=== PATIENT | male | born 1945 | race Caucasian/White ===

== ENCOUNTER 2018-06-23 06:00 | Inpatient (IN) | payer OTHER, SELFPAY ==
[2018-06-02 10:53] VITALS: BMI 34.7
[2018-06-23] VITALS (13 sets, daily range): BP systolic 116–155; BP diastolic 71–98; PULSE 66–108; RESP 14–22; TEMP 36.2–37.2; O2SAT 88–99; BMI 34.7
--- NOTE | 2018-06-23 06:30 | DI.RAD.S_ITS ---
PROCEDURE: XR SHOULDER LT 1V INDICATIONS: prosthesis placement TECHNIQUE: 1 views of the shoulder were acquired. COMPARISON: [facility], CR, XR SHOULDER 2+ VIEWS LEFT, 06/28/2017, 10:48. FINDINGS: Bones: At the postoperative changes have occurred in the interim related to a total left shoulder arthroplasty. The prosthetic components appear to be appropriately seated. No displaced fractures are appreciated. Soft tissues: Expected postoperative changes within the soft tissues overlying the left shoulder are present. A surgical drainage catheter is evident. No unexpected radiopaque foreign bodies are identified. IMPRESSION: Expected post surgical changes related to a left shoulder arthroplasty. Dictated by: Jose G Nuñez M.D. on 06/23/2018 at 10:31 Approved by: Jose G Nuñez M.D. on 06/23/2018 at 10:31
[2018-06-23] MEDS: LACTATED RINGERS 1,000 ML 42 ML IV ×2 (07:00→10:14)
[2018-06-23] MEDS: VANCOMYCIN 1,000 MG/200 ML FROZ.PIGGY 200 MG IV ×2 (07:05→19:27)
[2018-06-23] MEDS: MIDAZOLAM 2 MG/2 ML VIAL 1 MG IV (07:43)
[2018-06-23] MEDS: fentaNYL 100 MCG/2 ML INJ 50 MCG IV (07:43)
--- NOTE | 2018-06-23 07:50 | PM.AN.REGBLK ---
Regional Block Pre-procedure Medications: Current Medications Generic Name Dose Route Start Last Admin Trade Name Freq PRN Reason Stop Dose Admin Fentanyl 50 mcg 06/23/18 06:30 06/23/18 07:43 Sublimaze IV 50 mcg Q5MIN PRN Administration Pain, Severe (7-10) Lactated Ringer's 1,000 mls @ 42 mls/hr 06/23/18 06:30 06/23/18 07:00 Lactated Ringers IV 42 mls/hr CONT ANITA Administration Midazolam HCl 1 mg 06/23/18 06:30 06/23/18 07:43 Versed IV 1 mg Q2MIN PRN Administration Anxiety Tranexamic Acid 1,000 mg 06/23/18 06:30 Cyklokapron INJ 06/24/18 06:31 INTRA-OP ANITA Allergies: Allergies Allergy/AdvReac Type Severity Reaction Status Date / Time Penicillins Allergy Mild RASH AND Verified 05/10/18 09:00 SWELLING OF EXTREMITIES strawberry AdvReac Mild THROAT Verified 05/10/18 09:00 SCRATCHY watermelon AdvReac Mild BREATHING Verified 05/10/18 09:00 GETS WHEEZY
--- NOTE | 2018-06-23 07:55 | PM.PREOP ---
Pre-operative Note Interval Note Pre-op Check: Yes History & Physical Reviewed by Physician Changes: No
[2018-06-23] MEDS: GENTAMICIN 200 MG in SODIUM CHLORIDE 0.9% 100 ML 105 ML IV (08:00)
--- NOTE | 2018-06-23 08:04 | SUR.PREOP ---
Block start time [0750] . Monitoring initiated and maintained throughout procedure. Oxygen and medications given per anesthesiologist instructions. Patient remained stable throughout procedure, no adverse reactions noted. Block end time []0755 .
--- NOTE | 2018-06-23 08:43 | SUR.OPER ---
Beach chair with Lizeth/Michell shoulder positioner. Lower body on padded OR bed. Head in foam padded head cradle, secured with straps. Non-operative arm secured <90 degrees abduction. Pillow under knees. Safety belt at thigh. Cloth tape over blanket over lower legs.
[2018-06-23] MEDS: LIDOCAINE 1% W/EPI INJ 20 ML INJ (08:53)
--- NOTE | 2018-06-23 09:26 | PM.PROC.1 ---
Procedures Date/Time Date of procedure: 06/23/18 Time of procedure: 07:50 Nerve Block Local anesthetic used: other Location of anesthetic used: Block: 15ml ropivacaine 0.5% + 5ml Lido 2% w/ epi; Local 0.5ml Lido 1% Amount of anesthesia used (mL): 20 Nerve blocks: brachial plexus (Left interscalene/brachial plexus block) Procedure successful: Yes Patient tolerated procedure: well Complications: none Additional comments: Sterile technique with routine monitors and O2 per NC. Ultrasound visualization and Nerve Stimulator technique utilized. 50 mm 22g sheathed needle for block.
--- NOTE | 2018-06-23 10:42 | P.OP_ITS ---
Operative Date/Time/Diagnoses Date of procedure: 06/23/18 Time of procedure: 08:00 Pre-op diagnosis: LEFT SHOULDER END-STAGE ARTHRITIS Post-op diagnosis: same Procedure & Clinicians Procedure: LEFT TOTAL SHOULDER ARTHROPLASTY Same procedure as scheduled: Yes Indications: END-STAGE ARTHRITIS TO THE LEFT GLENOHUMERAL JOINT Surgeon: Ck Pedroza Humanities Instructor: Elena Hunt Anesthesia Type: General and Peripheral nerve block Operative Notes Findings: END-STAGE ARTHRITIC CHANGES TO THE GLENOHUMERAL JOINT. SIGNIFICANT OSTEOPHYTE FORMATION AROUND THE HUMERAL HEAD WELL FREE-FLOATING OSTEOPHYTES INVADED INTO THE SUBSCAPULARIS. ALSO FREE-FLOATING OSTEOPHYTE INFERIOR TO THE HUMERAL HEAD. NO SIGN OF ANY SIGNIFICANT ROTATOR CUFF TEARS. NO SIGN OF ANY HIGH RIDING HUMERAL HEAD. Specimen(s): none sent Implants & Drains: TORNIER XL50 GLENOID TORNIER 8B STEM 52X19 HIGH OFFSET Applied: drain(s) Estimated Blood Loss (mL): 100 Blood products transfused: none Procedure in detail: ON DATE OF SERVICE, PATIENT WAS MET IN THE HOLDING AREA. THE OPERATIVE SITE WAS SIGNED AND WITNESSED BY THE OR STAFF. THE SURGERIES ONCE AGAIN DISCUSSED WITH THE PATIENT AND ANY REMAINING QUESTIONS THEY HAD WERE ANSWERED FULLY. PATIENT WAS TAKEN BACK TO THE OPERATING THEATER AND PLACED ON THE OPERATING TABLE IN A SUPINE POSITION. GREAT CARE WAS TAKEN TO ENSURE THAT ALL BONY PROMINENCES WERE PROPERLY PADDED. PATIENT WAS THEN PLACED INTO THE BEACH CHAIR POSITION. THE HEAD AND NECK WERE PROPERLY POSITIONED AND SECURED. A TIMEOUT WAS PERFORMED VERIFYING PATIENT'S NAME, PROCEDURE, AND THE OPERATIVE SITE. THE UPPER EXTREMITY WAS THEN PREPPED AND DRAPED IN THE NORMAL STERILE FASHION. PREVIOUSLY, THE BONY ANATOMY AND INCISION WERE MARKED OUT WELL INJECTED WITH MARCAINE WITH EPINEPHRINE. A DELTOPECTORAL APPROACH WAS PERFORMED. 10 BLADE WAS USED TO INCISE THE SKIN AND FASCIAL TISSUE. A DEEP KNIFE WAS USED TO CONTINUE SHARP DISSECTION UNTIL THE CEPHALIC VEIN WAS VISUALIZED. THE CEPHALIC VEIN WAS DISSECTED FREE ALLOWING US TO EXPOSE THE DELTOPECTORAL INTERVAL. THIS INTERVAL WAS THEN DEVELOPED. A SHORT ELEVATOR WAS USED TO FREE UP THE DELTOID OF ANY SCARRING BOTH SUPERFICIALLY WELL DEEPLY. THE VEIN AND THE DELTOID WERE TAKEN LATERALLY WHILE THE PECTORALIS WAS TAKEN MEDIALLY. THIS GAVE US GOOD VISUALIZATION OF THE STRAP MUSCLES. THE CLAVIPECTORAL FASCIA WAS REMOVED AND THE STRAP MUSCLES WERE THEN RETRACTED MEDIALLY WITH THE PECTORALIS. THIS GAVE US STABILIZATION OF THE SUBSCAPULARIS. THE CIRCUMFLEX VESSELS WERE LIGATED AND THE SUBSCAPULARIS WAS SHARPLY EXCISED OFF THE LESSER TUBEROSITY AND THEN TAGGED. ONCE THE SUBSCAPULARIS WAS RELEASED WE'RE ABLE TO DISLOCATE THE SHOULDER. PATIENT HAD END-STAGE ARTHRITIC CHANGES TO THE HUMERAL HEAD WELL THE GLENOID WITH LARGE OSTEOPHYTES ANTERIOR INFERIORLY WELL POSTERIORLY. A RONGER WAS THEN USED TO REMOVE THE OSTEOPHYTES. NEXT, CUTTING GUIDE WAS PLACED AND A SAW WAS USED TO REMOVE THE HUMERAL HEAD. ONCE THE HEAD WAS REMOVED IT WAS TEMPLATED. A STARTING AWL WAS THEN USED TO FIND THE CANAL AND THEN THE HUMERUS WAS REAMED AND BROACHED. TRIAL STEM WAS PLACED AND A VARIETY OF HEADS WERE TRIALED. A PROTECTOR PLACED FOR THE OSTEOTOMY WAS THEN PLACED AND AND WE TURNED OUR ATTENTION BACK TO THE SUBSCAPULARIS WELL THE GLENOID. THE SUBSCAPULARIS WAS FREED UP AND A 360? FASHION. THE DEGENERATIVE ANTERIOR AND INFERIOR CAPSULAR TISSUE WAS REMOVED. THIS WAS FOLLOWED BY REMOVING THE DEGENERATIVE LABRAL TISSUE FROM AROUND THE GLENOID WELL THE BICEPS INSERTION. THIS GAVE US GOOD VISUALIZATION OF THE GLENOID. GLENOID TRIALS WERE USED UNTIL WE FOUND THE APPROPRIATE FIT AND CURVATURE. NEXT THE CENTER HOLE WAS DRILLED FOLLOWED BY REAMING OF THE GLENOID. THE WOUND WAS COPIOUSLY IRRIGATED AFTER REAMING. NEXT THE PEGS WERE DRILLED AND A TRIAL GLENOID WAS IMPACTED INTO PLACE. ONCE WE WERE SATISFIED WITH THE PREPARATION OF THE GLENOID , THE FINAL COMPONENT WAS CEMENTED INTO PLACE. THIS WAS FOLLOWED BY IMPACTION. WE RETURN TO OUR ATTENTION BACK TO THE HUMERUS. THE PROTECTOR PLATE WAS REMOVED AND HEADS WERE TRIALED ONCE AGAIN AND SO WE FOUND THE APPROPRIATE FIT. THE TRIALS WERE REMOVED AND BONE TUNNELS WERE MADE INTO THE HUMERAL NECK. #2 FIBERWIRE WERE PASSED THROUGH THE BONE TUNNELS FOR EVENTUAL SUBSCAPULARIS REPAIR. THE FINAL STEM AND HEAD WERE IMPACTED INTO PLACE AND THE SHOULDER WAS REDUCED. IT WAS TAKEN THROUGH RANGE OF MOTION AND WAS FELT TO BE STABLE IN BOTH POSTERIOR TRANSLATION WELL EXTERNAL AND INTERNAL ROTATION WITH ABDUCTION. THE SUBSCAPULARIS WAS REPAIRED BACK TO THE LESSER TUBEROSITY THROUGH THE BONE TUNNELS. THIS WAS THEN REINFORCED WITH SOFT TISSUE REPAIR. PART OF THE ROTATOR INTERVAL WAS THEN CLOSED. A DRAIN WAS PLACED AND THE REST OF THE WOUND WAS CLOSED IN A LAYERED FASHION. THE SHOULDER WAS THEN CLEANED DRIED AND DRESSED AND THE PATIENT WAS TAKEN TO THE PACU IN STABLE CONDITION. PATIENT WILL FOLLOW OUR POSTOPERATIVE PROTOCOL FOR TOTAL SHOULDER ARTHROPLASTY. Complications: none Condition: stable Disposition: PACU Plan for aftercare: PATIENT WILL FOLLOW OUR POSTOPERATIVE PROTOCOL FOR TOTAL SHOULDER ARTHROPLASTY.
[2018-06-23] MEDS: LACTATED RINGERS 1,000 ML 125 ML IV ×2 (12:21→19:26)
[2018-06-23] MEDS: HYDROCODONE/ACET 5/325 TABLET 2 TAB PO ×2 (15:01→20:35)
--- NOTE | 2018-06-23 15:24 | PT.IIE ---
Current Diagnoses Primary osteoarthritis, left shoulder (06/23/18) Surgery Performed Operation Date: 06/23/18 07:45 Actual Procedures p Total Shoulder Arthroplasty(Left) - Ck Pedroza MD Surgical History (Last Updated 06/02/18 @ 11:25 by Maddie Lei RN) H/O vasectomy (Acute) History of left-sided carotid endarterectomy (Acute) Hx of arthroscopy of left knee (Acute) Hx of tonsillectomy (Acute) Status post cataract extraction of both eyes with insertion of intraocular lens (Acute ~07/2015) Anesthesia (Resolved) Biceps tendon tear (Resolved ~2004) History of arthroplasty (Resolved ~07/07/13) History of prostate surgery (Resolved ~04/2000) Status post knee surgery Medical History (Last Updated 06/02/18 @ 11:31 by Maddie Lei RN) Snoring (Chronic) AAA (abdominal aortic aneurysm) without rupture (Acute ~12/2015) Afib (Acute) Anxiety (Acute) CAD (coronary artery disease) (Acute) CVA (cerebral vascular accident) (Acute ~09/2017) Hiatal hernia (Acute) Hyperlipidemia (Acute) Moderate mitral regurgitation (Acute) LALIT treated with BiPAP (Acute) PAD (peripheral artery disease) (Acute) Depression (Chronic) Elevated PSA (Chronic ~1999) Glaucoma (Chronic ~2004) Headache (Chronic) Hypertension (Chronic ~1989) Myocardial infarction (Chronic ~1983) Prostate cancer (Chronic ~1999) Shoulder pain (Chronic) Substance abuse (Chronic) TIA (transient ischemic attack) (Chronic ~2005) Tinnitus (Chronic) Vertigo (Chronic ~2004) Chicken pox (Resolved) Measles (Resolved) Physical Therapy Inpatient Evaluation/Re-Eval M1 PT/OT-IP Prior Functional Status Start: 06/23/18 16:55 Freq: NEEDED Status: Active Protocol: Document 06/23/18 15:24 AB (Rec: 06/23/18 17:10 AB [id number]) Medical Review Prior Functional Status Medical History Reviewed Yes Communication able to make needs known Mobility and Gait pt stated that he is indpenendent with all mobilities and ambulation without AD; able to walk ~ 1 mile daily Social History Household Members spouse Living Arrangements Mobile home Number of Floors (Floors) One Floor Number of Stairs To Enter/Railing? 4 stairs with bilateral rails Home Environment Standard Height Toilet Walk in Shower Employment Status Retired Additional Social History Comment spouse works but is off Fri, Sat Sun and can assist pt; pt has a hiking pole at home M2 PT-IP Current Condition Start: 06/23/18 16:55 Freq: NEEDED Status: Active Protocol: Document 06/23/18 15:24 AB (Rec: 06/23/18 17:10 AB [email or web address]) Physical Therapy Current Condition Current Condition Evaluation Date 06/23/18 Treatment Diagnosis s/p L TSA; difficulty in walking Onset Date 06/23/18 Precautions Shoulder Precautions Sling PROM Internal Rotation to Body No External Rotation No Abduction Forward Flexion to 90 degrees Pendulums Brace pt has L sling on M3 PT-IP Subjective Start: 06/23/18 16:55 Freq: NEEDED Status: Active Protocol: Document 06/23/18 15:24 AB (Rec: 06/23/18 17:10 AB [email or web address]) Subjective Physical Therapy Visit Type Type Initial Evaluation Visit Start Time 15:24 Visit Stop Time 16:00 Total Visit Minutes 36 Number of RESIDENTIAL PROGRAM DIRECTOR Visits 0 Physical Therapy Visit Comments Patient Comments pt agreeable to do PT Therapy Pain Assessment Pain When Pain Assessed At Rest Pain Present Pain Present Pain Reported Location Left Shoulder Intensity 5 Scale Used Numeric (1 - 10) Pain Management Techniques Apply Cold Timing of Activity with Medications M4 PT-IP Mobility and Gait Start: 06/23/18 16:55 Freq: NEEDED Status: Active Protocol: Document 06/23/18 15:24 AB (Rec: 06/23/18 17:10 AB [email or web address]) PT-Bed Mobility Assessment Supine to Sit Supine to Sit Standby Assistance Scooting Scooting to Edge of Bed Standby Assistance PT-Transfer Assessment Sit to and From Stand Sit to and from Stand Contact Guard Assistance Minimal Assistance Equipment Transfer Assistive Device None Gait Belt Orthotic/Prosthetic Devices or Brace: Yes Transfer Ability Level of Assist Contact Guard Assistance Comments Mobility Comments pt has L sling on pt required 2 attempts with sit to stand requiring min A and cues with initial LOB backwards requiring min A for controlled descent. pt ambulated in room without AD and sat on EOB to rest. agreed to get up and sit on chair and pt was able to complete sit to stand with only CGA. positioned pt on chair. call light and table placed within reach. Gait Assessment Gait Gait Assistance Required: Contact Guard Assist Minimum Assistance Distance (Feet) 40 Able to Maintain Weight Bearing Status Yes During Gait Assistive Devices Assistive Device None Gait Belt Orthotic/Prosthetic Devices or Brace: No Gait Deviations General Gait Pattern Antalgic Decreased Stride Length Wide Based Gait Factors Limiting Gait Function Factors Limiting Gait Function Decreased Activity Tolerance Decreased Strength Limited Range of Motion Pain Poor Balance Comments Gait Comments pt completed ambulation in room requiring min A with first walk ~ 20 ft and only required CGA with 2nd walk and completed 40 ft with cues. pt ambulated without AD and presents with unsteady gain with wide CECELIA. pt stated that his balance gets better the longer he stands and walkd. educated pt on possibly using a SPC and will be assessed tomorrow if appropriate and pt agreed. pt stated that he has a hiking pole at home he can use. PT-Balance Assessment Sitting Balance and Reactions Static Sitting Balance Ability Good Dynamic Sitting Balance Ability Good Standing Balance and Reactions Static Standing Balance Ability Fair Dynamic Standing Balance Ability Fair Device Used without AD M5 PT-IP Objective Assessments Start: 06/23/18 16:55 Freq: NEEDED Status: Active Protocol: Document 06/23/18 15:24 AB (Rec: 06/23/18 17:10 AB [id number]) Orientation Orientation/Cognition Level of Alertness Alert Orientation Name Place Situation Gross Range of Motion Upper Extremity ROM Assessment Left Impaired Impairments L on sling Lower Extremity ROM Assessment Within Functional Limits Strength Lower Extremity Strength Assessment Within Functional Limits Sensation Assessment Sensation Gross Sensation Left UE Impaired Comments Sensation Comments stated that L shoulder/traps still feels a little numb M6 PT-IP Treatment Start: 06/23/18 16:55 Freq: NEEDED Status: Active Protocol: Document 06/23/18 15:24 AB (Rec: 06/23/18 17:10 AB [email or web address]) Physical Therapy Treatment Exercises Exercises Elbow Flexion/Extension Education Education Provided Precautions Weight Bearing Status Post-Op Packet Safety Other Treatments Other Treatment Performed pt educated on sling management, shoulder precautions and pendulum activity. pt was able to dangle LUE but unable to do pendulum. pt completed elbow flexion/extension M7 PT-IP Assessment and Plan Start: 06/23/18 16:55 Freq: NEEDED Status: Active Protocol: Document 06/23/18 15:24 AB (Rec: 06/23/18 17:10 AB [email or web address]) PT Summary Assessment and Plan Potential Rehabilitation Potential Fair Status of Condition at Evaluation Evolving Summary Impairments Pain ROM Strength Balance Coordination Sensation Tone Cognition Bed Mobility Transfers Gait Activity Tolerance Assessment Summary pt requiring CGA with mobility and will likely progress during hospital stay. caregiver training will be conducted when appropriate as well as stair climbing training prior to d/c. pt has spouse to assist him at home. pt stated that he has outpt PT set up already. Goals Bed Mobility Goal Standby Assistance Transfer Goal Standby Assistance Gait Goal Standby Assistance Gait Distance 200 Other Goals up/down 4 steps with 1 rail Days to Meet Goals 3 Frequency of Treatment Frequency Of Treatment Twice a Day Treatment Plan Physical Therapy Treatment Plan Bed Mobility Training Transfer Training Gait Training Therapeutic Exercise Balance Retraining Post Op Education Discharge Planning Hot or Cold Pack Neuromuscular Re-ed Coordination Retraining Manual Therapy Other Recommendations and Next Treatment caregiver training (sling Focus management); pendulum exercises if appropriate; ambulation using SPC/without AD depending on pt's stability , stair climbing Recommendations To Nursing Amount of Assist Needed 1 Person Assist Discharge Recommendations PT Discharge Recommendations Home with Assistance Outpatient PT
--- NOTE | 2018-06-23 18:23 | PC.NURSE ---
Pt awake and alert up in recliner in room. Denies pain stating excellent results from vicodin administered on dayshi. Hemovac to left shoulder surgical site is compressed and intact. Strong radial pulse to left wrist with strong correctional corporal to left fingers. Warm extremities. Pt denies nausea, denies difficulty with urination. Has urinal @ chairside. General diet without nausea.
[2018-06-23] MEDS: DOCUSATE 100 MG CAPSULE PO (20:35)
[2018-06-24] MEDS: HYDROCODONE/ACET 5/325 TABLET 2 TAB PO ×3 (00:45→11:21)
[2018-06-24 04:23] VITALS: BP 156/94; PULSE 66; RESP 20; TEMP 36.8; O2SAT 94
[2018-06-24 04:51] VITALS: O2SAT 94
[2018-06-24 06:08] LABS: Hematocrit 38.3 % (41-53); Hemoglobin 13.2 g/dL (13.5-17.5); Mean Corpuscular HGB Conc 34.5 % (30-36); Mean Corpuscular Hemoglobin 32.5 PG (26-34); Mean Corpuscular Volume 94.2 fL (80-100); Platelet Count 130 X10^3/uL (150-400); Red Blood Cell Count 4.07 X10^6/uL (4.5-5.9); Red Cell Distribution Width 13.7 % (11.6-14.8); White Blood Cell Count 11.8 X10^3/uL (4.5-11.0)
--- NOTE | 2018-06-24 07:30 | PM.DS.1 ---
History of Present Illness Date Patient Seen: 06/24/18 Time Patient Seen: 07:19 Chief complaint: [id number] LEFT RECONSTRUC SHOULDER JOINT Narrative: Patient seen bedside s/p Julia CHIRINOS with Dr. Pedroza POD #1. Patient is doing well, his pain has been under a 5 all night. Hydrocodone/APAP brings pain down to nothing. He denies CP, SOB, or numbness/tingling. He is ready to go home. Discharge Providers Date of admission: 06/23/18 06:00 Primary care physician: Terence Landers MD Consults: 06/02/18 12:50 Consult to Anesthesiology Routine Comment: Consulting Provider: Anesthesiologist Reason for consultation: Surgeon requested re: Cardiac 06/23/18 10:32 Consult to Discharge Planning Routine Comment: Consult to Physical Therapy Evaluate & Treat Comment: Physician Instructions: Evaluate and Treat Consult to Respiratory Therapy Evaluate & Treat Comment: Physician Instructions: Evaluate and treat 06/23/18 12:21 Consult to Respiratory Therapy Evaluate & Treat Comment: Physician Instructions: Evaluate and treat Discharge provider: Jennyfer Clayton PA-C Discharge Date: 06/24/18 Summary Discharge Diagnosis: L. shoulder osteoarthritis Hospital Course: Patient was admitted s/p Julia CHIRINOS on 06/24/[address] Pedroza. Patient tolerated the procedure well with no major complications. Patient was transferred to the acute care floor where he worked with PT. He was stable and ready for discharge home on 06/24/18. Status at Discharge Cognitive/behavioral status at discharge: Alert & oriented x3 Functional status at discharge: independent ambulation Overall status at discharge: patient is progressing back to baseline Time Spent with Patient Less than 30 minutes Exam Vital Signs (past 8 hours): - 06/24/18 04:23 06/24/18 04:51 Temperature 98.2 F Pulse Rate 66 Respiratory Rate 20 Blood Pressure 156/94 H Pulse Oximetry 94 94 Oxygen Delivery Method BiPAP Oxygen Flow Rate 0 Narrative Exam Narrative: WDWN NAD A&Ox3. Aquacel dressing on left shoulder CDI. Sensation intact in LUE. ROM of wrist and elbow intact. NVI in this extremity. Objective Labs Result Diagrams: 06/24/18 05:49 Labs: Laboratory Results - last 24 hr 06/24/18 05:49 WBC 11.8 H RBC 4.07 L Hgb 13.2 L Hct 38.3 L MCV 94.2 MCH 32.5 MCHC 34.5 RDW 13.7 Plt Count 130 L Discharge Plan Discharge Plan Patient Disposition: Home Discharge Med Rec/Prescriptions Prescriptions: New hydrocodone-acetaminophen 5-325 mg Tablet 1 tab PO Q4HR PRN (Reason: Pain, Moderate (4-6)) Qty: 40 RF: 0 docusate sodium 100 mg Capsule 100 mg PO BID Qty: 0 RF: 0 Continue multivitamin Capsule 1 cap PO DAILY Qty: 0 RF: 0 apixaban [Eliquis] 5 MG tablet 5 mg BID Qty: 0 RF: 0 timolol maleate 0.5 % drops 1 drp EYE-BOTH QAM Qty: 0 RF: 0 latanoprost [Xalatan] 0.005 % Drops 1 drp EYE-BOTH BEDTIME RF: 0 rosuvastatin 40 mg Tablet 40 mg PO QAM RF: 0 prazosin 1 MG capsule 1 tab PO BID RF: 0 diltiazem HCl 180 mg capsule,extended release 24hr 180 mg PO DAILY RF: 0 Follow up/Referrals: Terence Landers MD [Primary Care Provider] - (follow up with your primary care provider) Provider Discharge Instructions Diet: Diet as Tolerated Activity: Keep sling on unless moving elbow/wrist, doing pendulum exercises. Do not move shoulder Cold/Heat Therapy: Apply ice 20 minutes at a time to affected area at least hourly while awake Skin/Wound/Dressing Care Report to your healthcare provider any signs of infection, such as:: chills, fever, night sweats, increased pain and unusual drainage Dressing: Keep Aquacel dressing clean, dry, and intact. May shower with it in place. No baths or soaking. Visit Report/Discharge Packet Instructions: DI for Shoulder Replacement Visit Report Forms: Stroke Signs & Symptoms Discharge Data Primary Care Provider: Terence Landers Attending Provider: Ck Pedroza Admit Date/Time: 06/23/18 06:00 Discharges patient from system. Discharge Date/Time: 06/24/18 11:30 Quality VTE Deep Vein Thrombosis/Pulmonary Embolism Present on Admission: No
[2018-06-24 08:07] VITALS: BP 132/82; PULSE 92; RESP 18; TEMP 36.6; O2SAT 95
--- NOTE | 2018-06-24 09:00 | PT.IPTN ---
Current Diagnoses Primary osteoarthritis, left shoulder (06/23/18) Surgery Performed Operation Date: 06/23/18 07:45 Actual Procedures p Total Shoulder Arthroplasty(Left) - Ck Pedroza MD Physical Therapy Treatment Note M2 PT-IP Current Condition Start: 06/23/18 16:55 Freq: NEEDED Status: Discharge Protocol: Document 06/23/18 15:24 AB (Rec: 06/23/18 17:10 AB [email or web address]) Physical Therapy Current Condition Current Condition Evaluation Date 06/23/18 Treatment Diagnosis s/p L TSA; difficulty in walking Onset Date 06/23/18 Precautions Shoulder Precautions Sling PROM Internal Rotation to Body No External Rotation No Abduction Forward Flexion to 90 degrees Pendulums Brace pt has L sling on M3 PT-IP Subjective Start: 06/23/18 16:55 Freq: NEEDED Status: Discharge Protocol: Document 06/24/18 09:00 GGD (Rec: 06/24/18 12:59 GGD [id number]) Subjective Physical Therapy Visit Type Type Treatment Note Visit Start Time 08:35 Visit Stop Time 09:00 Total Visit Minutes 25 Number of EXTRUSION BENDER Visits 1 Physical Therapy Visit Comments Patient Comments Pt states he wants to go home. Therapy Pain Assessment Pain When Pain Assessed At Rest Pain Present Pain Present Pain Reported Location Left Shoulder Intensity 4 Scale Used Numeric (1 - 10) M4 PT-IP Mobility and Gait Start: 06/23/18 16:55 Freq: NEEDED Status: Discharge Protocol: Document 06/24/18 09:00 GGD (Rec: 06/24/18 12:59 GGD [id number]) PT-Transfer Assessment Sit to and From Stand Sit to and from Stand Standby Assistance Equipment Transfer Assistive Device None Gait Belt Orthotic/Prosthetic Devices or Brace: Yes Transfers Transfer Destination Chair Transfer Ability Level of Assist Contact Guard Assistance Gait Assessment Gait Gait Assistance Required: Contact Guard Assist Distance (Feet) 220 Able to Maintain Weight Bearing Status Yes During Gait Assistive Devices Assistive Device None Gait Belt Orthotic/Prosthetic Devices or Brace: Yes Gait Deviations General Gait Pattern Antalgic Decreased Stride Length Wide Based Gait Factors Limiting Gait Function Factors Limiting Gait Function Decreased Activity Tolerance Decreased Strength Limited Range of Motion Pain Poor Balance Stair Climbing Assessment Evaluation Level of Assist On Stairs Standby Assistance Devices Stair Climbing Assistive Devices Left Railing Right Railing Technique/Endurance Stair Climbing Direction Ascend and Descend Stair Climbing Technique Step Over Step Number of Steps Climbed 3 Query Text: Stair Climbing Set # Repetitions (reps) 1 Comments Stair Climbing Comments right rail M5 PT-IP Objective Assessments Start: 06/23/18 16:55 Freq: NEEDED Status: Discharge Protocol: Document 06/23/18 15:24 AB (Rec: 06/23/18 17:10 AB [email or web address]) Orientation Orientation/Cognition Level of Alertness Alert Orientation Name Place Situation Gross Range of Motion Upper Extremity ROM Assessment Left Impaired Impairments L on sling Lower Extremity ROM Assessment Within Functional Limits Strength Lower Extremity Strength Assessment Within Functional Limits Sensation Assessment Sensation Gross Sensation Left UE Impaired Comments Sensation Comments stated that L shoulder/traps still feels a little numb M6 PT-IP Treatment Start: 06/23/18 16:55 Freq: NEEDED Status: Discharge Protocol: Document 06/24/18 09:00 GGD (Rec: 06/24/18 12:59 GGD [id number]) Physical Therapy Treatment Exercises Exercises Shoulder Pendulums Elbow Flexion/Extension Wrist ROM Hand ROM Education Education Provided Precautions Weight Bearing Status Post-Op Packet Safety M7 PT-IP Assessment and Plan Start: 06/23/18 16:55 Freq: NEEDED Status: Discharge Protocol: Document 06/24/18 09:00 GGD (Rec: 06/24/18 12:59 GGD [id number]) PT Summary Assessment and Plan Summary Assessment Summary Pt improving with mobility. He had improved steadiness with gait. He was safe and stable with gait and stair mobility with no LOB. Safe for D/C home when medically stable. Frequency of Treatment Frequency Of Treatment Twice a Day Recommendations To Nursing Amount of Assist Needed 1 Person Assist Discharge Recommendations PT Discharge Recommendations Home with Assistance Outpatient PT
[2018-06-24] MEDS: dilTIAZem CD 180 MG CAP PO (09:15)
[2018-06-24] MEDS: MULTIVITAMIN 1 TABLET 1 TAB PO (09:16)
[2018-06-24] MEDS: ROSUVASTATIN 10 MG TABLET 40 MG PO (09:16)
[2018-06-24] MEDS: DOCUSATE 100 MG CAPSULE PO (09:16)
--- NOTE | 2018-06-24 09:25 | PT.IPTN ---
Current Diagnoses Primary osteoarthritis, left shoulder (06/23/18) Surgery Performed Operation Date: 06/23/18 07:45 Actual Procedures p Total Shoulder Arthroplasty(Left) - Ck Pedroza MD Physical Therapy Treatment Note M2 PT-IP Current Condition Start: 06/23/18 16:55 Freq: NEEDED Status: Discharge Protocol: Document 06/23/18 15:24 AB (Rec: 06/23/18 17:10 AB [email or web address]) Physical Therapy Current Condition Current Condition Evaluation Date 06/23/18 Treatment Diagnosis s/p L TSA; difficulty in walking Onset Date 06/23/18 Precautions Shoulder Precautions Sling PROM Internal Rotation to Body No External Rotation No Abduction Forward Flexion to 90 degrees Pendulums Brace pt has L sling on M3 PT-IP Subjective Start: 06/23/18 16:55 Freq: NEEDED Status: Discharge Protocol: Document 06/23/18 15:24 AB (Rec: 06/23/18 17:10 AB [email or web address]) Subjective Physical Therapy Visit Type Type Initial Evaluation Visit Start Time 15:24 Visit Stop Time 16:00 Total Visit Minutes 36 Number of POWERSAW SUPERVISOR Visits 0 Physical Therapy Visit Comments Patient Comments pt agreeable to do PT Therapy Pain Assessment Pain When Pain Assessed At Rest Pain Present Pain Present Pain Reported Location Left Shoulder Intensity 5 Scale Used Numeric (1 - 10) Pain Management Techniques Apply Cold Timing of Activity with Medications M4 PT-IP Mobility and Gait Start: 06/23/18 16:55 Freq: NEEDED Status: Discharge Protocol: Document 06/23/18 15:24 AB (Rec: 06/23/18 17:10 AB [email or web address]) PT-Bed Mobility Assessment Supine to Sit Supine to Sit Standby Assistance Scooting Scooting to Edge of Bed Standby Assistance PT-Transfer Assessment Sit to and From Stand Sit to and from Stand Contact Guard Assistance Minimal Assistance Equipment Transfer Assistive Device None Gait Belt Orthotic/Prosthetic Devices or Brace: Yes Transfer Ability Level of Assist Contact Guard Assistance Comments Mobility Comments pt has L sling on pt required 2 attempts with sit to stand requiring min A and cues with initial LOB backwards requiring min A for controlled descent. pt ambulated in room without AD and sat on EOB to rest. agreed to get up and sit on chair and pt was able to complete sit to stand with only CGA. positioned pt on chair. call light and table placed within reach. Gait Assessment Gait Gait Assistance Required: Contact Guard Assist Minimum Assistance Distance (Feet) 40 Able to Maintain Weight Bearing Status Yes During Gait Assistive Devices Assistive Device None Gait Belt Orthotic/Prosthetic Devices or Brace: No Gait Deviations General Gait Pattern Antalgic Decreased Stride Length Wide Based Gait Factors Limiting Gait Function Factors Limiting Gait Function Decreased Activity Tolerance Decreased Strength Limited Range of Motion Pain Poor Balance Comments Gait Comments pt completed ambulation in room requiring min A with first walk ~ 20 ft and only required CGA with 2nd walk and completed 40 ft with cues. pt ambulated without AD and presents with unsteady gain with wide CEECLIA. pt stated that his balance gets better the longer he stands and walkd. educated pt on possibly using a SPC and will be assessed tomorrow if appropriate and pt agreed. pt stated that he has a hiking pole at home he can use. PT-Balance Assessment Sitting Balance and Reactions Static Sitting Balance Ability Good Dynamic Sitting Balance Ability Good Standing Balance and Reactions Static Standing Balance Ability Fair Dynamic Standing Balance Ability Fair Device Used without AD M5 PT-IP Objective Assessments Start: 06/23/18 16:55 Freq: NEEDED Status: Discharge Protocol: Document 06/23/18 15:24 AB (Rec: 06/23/18 17:10 AB [email or web address]) Orientation Orientation/Cognition Level of Alertness Alert Orientation Name Place Situation Gross Range of Motion Upper Extremity ROM Assessment Left Impaired Impairments L on sling Lower Extremity ROM Assessment Within Functional Limits Strength Lower Extremity Strength Assessment Within Functional Limits Sensation Assessment Sensation Gross Sensation Left UE Impaired Comments Sensation Comments stated that L shoulder/traps still feels a little numb M6 PT-IP Treatment Start: 06/23/18 16:55 Freq: NEEDED Status: Discharge Protocol: Document 06/23/18 15:24 AB (Rec: 06/23/18 17:10 AB [email or web address]) Physical Therapy Treatment Exercises Exercises Elbow Flexion/Extension Education Education Provided Precautions Weight Bearing Status Post-Op Packet Safety Other Treatments Other Treatment Performed pt educated on sling management, shoulder precautions and pendulum activity. pt was able to dangle LUE but unable to do pendulum. pt completed elbow flexion/extension M7 PT-IP Assessment and Plan Start: 06/23/18 16:55 Freq: NEEDED Status: Discharge Protocol: Document 06/23/18 15:24 AB (Rec: 06/23/18 17:10 AB [email or web address]) PT Summary Assessment and Plan Potential Rehabilitation Potential Fair Status of Condition at Evaluation Evolving Summary Impairments Pain ROM Strength Balance Coordination Sensation Tone Cognition Bed Mobility Transfers Gait Activity Tolerance Assessment Summary pt requiring CGA with mobility and will likely progress during hospital stay. caregiver training will be conducted when appropriate as well as stair climbing training prior to d/c. pt has spouse to assist him at home. pt stated that he has outpt PT set up already. Goals Bed Mobility Goal Standby Assistance Transfer Goal Standby Assistance Gait Goal Standby Assistance Gait Distance 200 Other Goals up/down 4 steps with 1 rail Days to Meet Goals 3 Frequency of Treatment Frequency Of Treatment Twice a Day Treatment Plan Physical Therapy Treatment Plan Bed Mobility Training Transfer Training Gait Training Therapeutic Exercise Balance Retraining Post Op Education Discharge Planning Hot or Cold Pack Neuromuscular Re-ed Coordination Retraining Manual Therapy Other Recommendations and Next Treatment caregiver training (sling Focus management); pendulum exercises if appropriate; ambulation using SPC/without AD depending on pt's stability , stair climbing Recommendations To Nursing Amount of Assist Needed 1 Person Assist Discharge Recommendations PT Discharge Recommendations Home with Assistance Outpatient PT
[2018-06-24 11:33] VITALS: BP 163/85; PULSE 79; RESP 18; TEMP 36.3; O2SAT 95
--- NOTE | 2018-06-24 12:23 | PC.NURSE ---
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 Given norco 5/325mg x1 tab prior to discharge, script provided.
--- NOTE | 2018-06-24 15:53 | CM.DANOTE ---
Discharge Planning/Care Management CM Discharge Assessment Start: 06/24/18 15:53 Freq: Status: Discharge Protocol: Document 06/24/18 10:32 (Rec: 06/24/18 15:53 [id number]) Discharge Planning Assessment Assigned Rn Outpatient Surgery CHANTELLE Be Advance Directives? No History Provided By Patient Family Member Medical Record Prior Living Arrangements Mobile home Household Members spouse Type of transporation used prior to Drives own vehicle admit Independent with ADL's Yes Is patient alert and oriented? Yes Patient/Family Preference OP PT Therapy Barriers to Discharge No Discharge Plan Home Community Services Physical Therapy Referrals Initiated None needed Whiteboard Updated in Patient Room with Yes name and ext. # of Rn Outpatient Surgery Please Provide Date Initial DC 06/24/18 Assessment Was Performed Pre-Anesthesia Assessment Start: 06/02/18 10:53 Freq: Status: Complete Protocol: Document 06/02/18 10:53 CAB (Rec: 06/02/18 11:46 CAB [id number]) Pre-Anesthesia Assessment Patient Also Known As ([email or web address]) Jaciel Patient Information Reviewed Via Phone Assessment Assessment Completed With Patient Lab Results EKG Primary Care Provider Terence Landers Seen Specialist in Last 12 Months Yes Specialist Seen Guest Service Team Leader Orthopedist Sleep specialist Primary Language Kosovan Rare/Endangered Species Specialist Required No Height 180.34 cm Weight 112.945 kg Body Mass Index (BMI) 34.7 Hearing Ability Normal Visual Assist Glasses Dentition Type Teeth, Natural Present Barriers to Learning Memory Comment Short term memory issues Hx Anesthesia Reactions No Hx Family Anesthesia Reaction No Hx Malignant Hyperthermia No Hx Blood Transfusions Yes: Autologous transfusion 2000 s/p prostatectomy Hx Blood Transfusion Reaction No Anesthesia Review Requested Yes: Surgeon requested re: Cardiac 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 No Does patient have WEI/SOB No Hx Sleep Apnea Yes CPAP/BIPAP use prescribed and used routinely Will Bring CPAP/BIPAP DOS Yes Currently Taking a Beta Kelvin No Can You Climb a Flight of Stairs Without Yes: c/o daytime fatigue PCP SOB , molder vacuum aware Hx Chest Pain No Hx SOB No Hx Syncope or Dizziness No Anti-Coagulant Therapy Yes: Eliquis - will hold 48hrs prior per Guest Service Team Leader Has a Guest Service Team Leader Yes Cardiac Testing Yes: Last ECHO, Carotid US 10/10 Hx Pacemaker/ICD No Pacemaker Rep Required? No Comment Cardiology note, ECHO to med recs. Carotid US done at Diet Type At Home Regular dysphagia No Genitourinary Symptoms Dribbling Bladder Pattern Nocturia Urinary Catheter Present No Hx Urinary Self Catheterization No Diabetes No Hx Drug Resistant Organism No Presence of External or Internal Medical No Devices Comment Aortic stent Have you traveled outside the [facility] [place] in the last 30 days? Marital Status Lives With spouse Prior Living Arrangements Mobile home Number of Floors (Floors) One Floor Number of Stairs To Enter/Railing? 4 stairs, railing present Support System Child/Children Spouse Does the Patient Have Assistance After Yes Surgery Patient Discharge Plan Description Return Home Comment Pt feels overnight length of stay Feels Safe in Current Environment Yes Been Physically Hurt or Threatened By a No Person in Current Environment Do you have thoughts of harming yourself None or others? Are you currently considering suicide? No Do you have a plan to hurt yourself or No Plan others? Do You Have Any Spiritual Beliefs That No May Affect Your HC Choices? Do You Have Any Cultural Practices That No May Affect Your HC Choices? Spiritual Referral None Who Can We Speak to About Patient's Care Family, friends Identifying Code for Release of Patient Declines to issue Information Health Care Proxy/Next of Kin Mariza () Health Care Proxy Emergency Contact Name Mariza () Emergency Contact Advance Directives? No: Declines further information Power of Park Interpretive Ranger No PAC Instructions Bring CPAP/BIPAP Do not shave/clip surgical site Durable medical equipment Medications to take/avoid Nasal antibiotic No ETOH/petroleum product on skin DOS NPO Post-op transportation Pre-surgical wash Sturdy shoes/comfortable clothes Do not bring valuables and remove jewelry
== END 2018-06-24 11:30 | disposition home or self-care (01) | DRG 483 ==
PROVIDERS: Admitting Provider Orthopaedic Surgery; Family Provider Family Medicine; PCP Family Medicine; Visit Provider Orthopaedic Surgery
PROC: (CPT 23472; principal; 2018-06-23 07:45)
DX: M19.012 Primary osteoarthritis, left shoulder (principal); I10 Essential (primary) hypertension; F32.9 Major depressive disorder, single episode, unspecified; Z96.611 Presence of right artificial shoulder joint; M24.012 Loose body in left shoulder
CPT/HCPCS: 36415; 64450; 73020; 85027; 97110; 97116; 97162; 97530; C1776; J0330; J1100; J2250; J2405; J2704; J2795; J3010; J3370

== ENCOUNTER → 2019-02-20 11:58 | Outpatient (CLI) | payer OTHER, SELFPAY ==
[2018-06-23 06:35] VITALS: BMI 34.7
[2019-02-20 12:44] LABS: Add Manual Diff / Slide Review NO; Basophils Absolute Auto 0 /uL (0-100); Basophils Percent Auto 0.3 % (0-2); Eosinophils Absolute Auto 100 /uL (0-450); Eosinophils Percent Auto 1.3 % (2-4); Hematocrit 45.1 % (41-53); Hemoglobin 14.7 g/dL (13.5-17.5); Lymphocytes Absolute Auto 1200 /uL (1100-4500); Lymphocytes Percent Auto 18.2 % (25-40); Mean Corpuscular HGB Conc 32.7 % (30-36); Mean Corpuscular Hemoglobin 31.2 PG (26-34); Mean Corpuscular Volume 95.5 fL (80-100); Monocytes Absolute Auto 500 /uL (0-900); Monocytes Percent Auto 8.6 % (3-14); Neutrophils Absolute Auto 4600 /uL (1500-7000); Neutrophils Percent Auto 71.6 % (50-75); Platelet Count 137 X10^3/uL (150-400); Red Blood Cell Count 4.72 X10^6/uL (4.5-5.9); Red Cell Distribution Width 16.2 % (11.6-14.8); White Blood Cell Count 6.4 X10^3/uL (4.5-11.0)
[2019-02-20 13:48] LABS: Alanine Aminotransferase 17 IU/L (21-72); Albumin Globulin Ratio 1.2 (1.0-2.8); Alkaline Phosphatase 115 U/L (38-126); Aspartate Aminotransferase 23 IU/L (17-59); BUN Creatinine Ratio 10.9 (6-22); Bilirubin Total 0.8 mg/dL (0.2-1.3); Blood Urea Nitrogen 12 mg/dL (9-20); Calcium 9.2 mg/dL (8.4-10.2); Carbon Dioxide 28 mmol/L (22-32); Chloride 102 mmol/L (98-107); Cholesterol 142 mg/dL (140-199); Estimated Glomerular Filt Rate > 60.0 mL/min (>60); Globulin 3.3 g/dL (1.7-4.1); Glucose 100 mg/dL (80-110); HDL Cholesterol 56 mg/dL (40-60); HEMOLYSIS < 15 (0-50); LDL Cholesterol Calculated 62 mg/dL (<100); Potassium 4.5 mmol/L (3.4-5.1); Sodium 140 mmol/L (137-145); Total Protein 7.3 g/dL (6.3-8.2); Triglycerides 121 mg/dL (35-150)
[2019-02-20 14:15] LABS: Thyroid Stimulating Hormone 5.39 uIU/mL (0.47-4.68)
[2019-02-20 14:19] LABS: Prostate Specific Antigen Scrn < 0.064 ng/mL (0.1-4.0)
== END ==
PROVIDERS: PCP Family Medicine; Visit Provider Family Medicine
DX: R42 Dizziness and giddiness (principal); Z12.5 Encounter for screening for malignant neoplasm of prostate
CPT/HCPCS: 36415; 80053; 80061; 83735; 84443; 85025; G0103

== ENCOUNTER → 2020-07-01 14:14 | Outpatient (CLI) | payer OTHER, SELFPAY ==
[2018-06-23 06:35] VITALS: BMI 34.7
[2020-07-01 15:22] LABS: Add Manual Diff / Slide Review NO; Basophils Absolute Auto 0 /uL (0-100); Basophils Percent Auto 0.5 % (0-2); Eosinophils Absolute Auto 200 /uL (0-450); Eosinophils Percent Auto 2.1 % (2-4); Hematocrit 43.8 % (41-53); Hemoglobin 14.7 g/dL (13.5-17.5); Lymphocytes Absolute Auto 1600 /uL (1100-4500); Lymphocytes Percent Auto 21.7 % (25-40); Mean Corpuscular HGB Conc 33.5 % (30-36); Mean Corpuscular Hemoglobin 31.7 PG (26-34); Mean Corpuscular Volume 94.6 fL (80-100); Monocytes Absolute Auto 700 /uL (0-900); Monocytes Percent Auto 9.3 % (3-14); Neutrophils Absolute Auto 5000 /uL (1500-7000); Neutrophils Percent Auto 66.4 % (50-75); Platelet Count 122 X10^3/uL (150-400); Red Blood Cell Count 4.63 X10^6/uL (4.5-5.9); Red Cell Distribution Width 14.1 % (11.6-14.8); White Blood Cell Count 7.6 X10^3/uL (4.5-11.0)
[2020-07-01 15:31] LABS: Hemoglobin A1C% w Est Avg Glu 6.1 % (4.0-6.0)
[2020-07-01 15:54] LABS: Alanine Aminotransferase 21 IU/L (<50); Albumin Globulin Ratio 1.1 (1.0-2.8); Alkaline Phosphatase 86 U/L (38-126); Aspartate Aminotransferase 29 IU/L (17-59); BUN Creatinine Ratio 15.2 (6-22); Bilirubin Total 0.6 mg/dL (0.2-1.3); Blood Urea Nitrogen 16 mg/dL (9-20); Calcium 9.5 mg/dL (8.4-10.2); Carbon Dioxide 33 mmol/L (22-32); Chloride 102 mmol/L (98-107); Estimated Glomerular Filt Rate > 60.0 mL/min (>60); Globulin 3.6 g/dL (1.7-4.1); Glucose 99 mg/dL (80-110); HEMOLYSIS < 15 (0-50); Potassium 3.8 mmol/L (3.4-5.1); Sodium 138 mmol/L (137-145); Total Protein 7.6 g/dL (6.3-8.2)
[2020-07-01 16:09] LABS: Free T4, Direct Thyroxine 1.15 ng/dL (0.78-2.19)
[2020-07-01 16:22] LABS: Thyroid Stimulating Hormone 1.38 uIU/mL (0.47-4.68)
== END ==
PROVIDERS: PCP Family Medicine; Referring Provider Family Medicine; Visit Provider Family Medicine
DX: E03.9 Hypothyroidism, unspecified (principal); I10 Essential (primary) hypertension; R41.3 Other amnesia
CPT/HCPCS: 36415; 80053; 83036; 84439; 84443; 85025

== ENCOUNTER → 2020-09-27 11:00 | Outpatient (CLI) | payer OTHER, SELFPAY ==
[2018-06-23 06:35] VITALS: BMI 34.7
[2020-09-27 12:17] LABS: Hematocrit 44.2 % (41-53); Hemoglobin 14.8 g/dL (13.5-17.5); Mean Corpuscular HGB Conc 33.6 % (30-36); Mean Corpuscular Hemoglobin 31.6 PG (26-34); Mean Corpuscular Volume 94.2 fL (80-100); Platelet Count 136 X10^3/uL (150-400); Red Blood Cell Count 4.69 X10^6/uL (4.5-5.9); Red Cell Distribution Width 14.2 % (11.6-14.8); White Blood Cell Count 6.4 X10^3/uL (4.5-11.0)
[2020-09-27 12:26] LABS: Hemoglobin A1C% w Est Avg Glu 6.1 % (4.0-6.0)
[2020-09-27 12:44] LABS: Alanine Aminotransferase 15 IU/L (<50); Albumin 4.1 g/dL (3.5-5.0); Albumin Globulin Ratio 1.3 (1.0-2.8); Alkaline Phosphatase 89 U/L (38-126); Aspartate Aminotransferase 28 IU/L (17-59); BUN Creatinine Ratio 14.7 (6-22); Bilirubin Total 0.6 mg/dL (0.2-1.3); Blood Urea Nitrogen 15 mg/dL (9-20); Calcium 9.4 mg/dL (8.4-10.2); Carbon Dioxide 31 mmol/L (22-32); Chloride 101 mmol/L (98-107); Cholesterol 149 mg/dL (140-199); Estimated Glomerular Filt Rate > 60.0 mL/min (>60); Globulin 3.2 g/dL (1.7-4.1); Glucose 104 mg/dL (80-110); HDL Cholesterol 44 mg/dL (40-60); HEMOLYSIS < 15 (0-50); LDL Cholesterol Calculated 84 mg/dL (<100); Potassium 4.8 mmol/L (3.4-5.1); Sodium 137 mmol/L (137-145); Total Protein 7.3 g/dL (6.3-8.2); Triglycerides 106 mg/dL (35-150)
[2020-09-27 13:08] LABS: Thyroid Stimulating Hormone 0.581 uIU/mL (0.47-4.68)
[2020-09-27 13:13] LABS: Prostate Specific Antigen Scrn < 0.064 ng/mL (0.1-4.0)
== END ==
PROVIDERS: PCP Family Medicine; Referring Provider Family Medicine; Visit Provider Family Medicine
DX: E78.2 Mixed hyperlipidemia (principal); I10 Essential (primary) hypertension; Z12.5 Encounter for screening for malignant neoplasm of prostate; Z85.46 Personal history of malignant neoplasm of prostate
CPT/HCPCS: 36415; 80053; 80061; 83036; 84443; 85027; G0103

== ENCOUNTER → 2021-03-20 10:54 | Outpatient (CLI) | payer OTHER, SELFPAY ==
[2018-06-23 06:35] VITALS: BMI 34.7
--- NOTE | 2021-03-20 10:59 | DI.CT.S_ITS ---
PROCEDURE: CT ABDOMEN PELVIS W CON INDICATIONS: abdominal pain LLQ TECHNIQUE: After the administration of oral and IV contrast, axial sections were acquired from the lung bases to the pubic symphysis. Coronal and sagittal reformats were performed. For radiation dose reduction, the following was used: automated exposure control, adjustment of mA and/or kV according to patient size. COMPARISON: Outside Film, CT, CT ANGIO ABDOMEN PELVIS, 01/02/2016, 13:39. [facility] Ultrasound, US, US [facility], 10/26/2016, 10:00. FINDINGS: Lower thorax: Lung bases are clear. Small hiatal hernia noted. Heart size within normal limits. Pacer wires present. Chronic interstitial changes noted. Liver: Simple hepatic cysts are again noted smaller compared to the prior exam. Largest is in the right hepatic lobe measuring 3.5 x 4.7 cm, previously 5.5 x 6 cm. Biliary system: No calcified cholelithiasis or pericholecystic inflammation. No intra or extrahepatic bile duct dilatation. Pancreas: Unremarkable without mass or inflammation evident. Spleen: Normal in size and density. Adrenals: Normal morphology and density. Reproductive system: Prostatectomy. Associated surgical clips noted. Urinary system: Normal renal size and attenuation. No renal calculi, hydronephrosis, or solid mass present. Urinary bladder unremarkable. Gastrointestinal system: The bowel appears unremarkable with no evidence of bowel obstruction or inflammation. The stomach appears unremarkable. Multiple diverticula arise from the sigmoid colon without convincing evidence of diverticulitis. Appendix: Normal appendix identified. No evidence of appendicitis. Peritoneal spaces: No mesenteric or retroperitoneal adenopathy. No free air. No free fluid. Vasculature: Infrarenal abdominal aortic aneurysm noted. There is patent aorto bi-iliac endograft present, however, the pokagon thrombosed aortic aneurysm has increased in size compared to the prior exam, now measuring 5.5 x 6.5 cm in diameter by 8.8 cm in length, previously 4.4 x 4.3 cm diameter by 6.5 cm in length. There is a halo slightly increased density is noted surrounding the endo graft, as well as multifocal contrast blush adjacent to the graft measuring less than 3 mm on image 2/47. Musculoskeletal: Normal bone mineralization. No acute fractures. Left inguinal hernia contains fat without bowel involvement. IMPRESSION: 1. 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 Aorto bi-iliac endograft with enlarging surrounding pokagon abdominal aortic aneurysm consistent with [id number] but contained endoleak. 2. Sigmoid diverticulosis without convincing evidence of acute diverticulitis 3. Prostatectomy Approved by: Eddy Dover M.D. on 03/20/2021 at 12:22
[2021-03-20 11:32] LABS: BUN Creatinine Ratio 10.7 (6-22); Blood Urea Nitrogen 13 mg/dL (9-20); Estimated Glomerular Filt Rate 58.5 mL/min (>60)
== END ==
PROVIDERS: PCP Family Medicine; Referring Provider Surgery; Visit Provider Surgery
DX: R10.32 Left lower quadrant pain; K57.30 Diverticulosis of large intestine without perforation or abscess without bleeding
CPT/HCPCS: 36415; 74177; 82565; 84520

== ENCOUNTER → 2021-04-21 09:35 | Outpatient (CLI) | payer OTHER, SELFPAY ==
[2021-04-21 09:18] VITALS: BMI 34.7
[2021-04-21 11:28] LABS: COVID19 -Nasal RAPID Negative (Negative)
== END ==
PROVIDERS: PCP Family Medicine; Visit Provider Surgery
DX: Z20.822 Contact with and (suspected) exposure to COVID-19 (principal); Z01.812 Encounter for preprocedural laboratory examination
CPT/HCPCS: 87635; C9803

== ENCOUNTER → 2021-04-22 10:36 | Day surgery (SDC) | payer OTHER, SELFPAY ==
[2018-06-23 06:35] VITALS: BMI 34.7
[2021-04-21 09:18] VITALS: BMI 34.7
[2021-04-22] VITALS (7 sets, daily range): BP systolic 84–156; BP diastolic 38–83; PULSE 67–83; RESP 12–18; TEMP 36.6–36.7; O2SAT 95–98; BMI 33.5
[2021-04-22] MEDS: LACTATED RINGERS 1,000 ML 200 ML IV (11:13)
--- NOTE | 2021-04-22 12:33 | PM.HP.1 ---
History of Present Illness History of Present Illness Date Patient Seen: 04/22/21 Time Patient Seen: 12:34 Chief complaint: DX COLONOSCOPY Narrative: 75M here for elective colonoscopy for change of bowel habit and abdominal pain. Please see H&P from January 2021 for further detail. No interval changes in health. Patient History Medical History AAA (abdominal aortic aneurysm) without rupture (~12/2015) Afib Anxiety Body mass index (BMI) of 35.0 to 35.9 in adult (11/19/16) CAD (coronary artery disease) Chicken pox CVA (cerebral vascular accident) (~09/2017) Depression Elevated PSA (~1999) Essential hypertension (11/19/16) Glaucoma (~2004) Headache Hiatal hernia Hyperlipidemia Hypothyroidism Measles Moderate mitral regurgitation Myocardial infarction (~1983) Obstructive sleep apnea of adult PAD (peripheral artery disease) Pre-diabetes Prostate cancer (~1999) Shoulder pain Snoring Status post repair of abdominal aortic aneurysm (AAA) using straight graft (11/19/16) Substance abuse TIA (transient ischemic attack) (~2005) Tinnitus Vertigo (~2004) Surgical History AICD (automatic cardioverter/defibrillator) present Anesthesia Biceps tendon tear (~2004) H/O vasectomy History of arthroplasty (~07/07/13) History of left-sided carotid endarterectomy History of prostate surgery (~04/2000) History of shoulder surgery Hx of arthroscopy of left knee Hx of tonsillectomy Status post cataract extraction of both eyes with insertion of intraocular lens (~07/2015) Status post knee surgery Family & Social History Family History Child Alcoholism Father Heart disease Hypertension Mother Rheumatoid arthritis Grandmother Diabetes mellitus Brother No problems noted. Grandfather No problems noted. Social History: household members spouse lives independently Yes caregiver/support person No Tobacco & Substance use: Tobacco type cigarettes Smoking Status Former smoker alcohol intake former Substance Use Type does not use Meds Home Medications and Allergies Home Medications Medication Instructions Recorded Confirmed Type multivitamin 1 cap PO DAILY #0 05/04/11 04/02/21 History timolol maleate 0.5 % eye drops 1 drp EYE-BOTH QAM #0 11/02/17 04/02/21 History latanoprost 0.005 % eye drops 1 drp EYE-BOTH BEDTIME 06/02/18 04/22/21 History (Xalatan) Respironics BIPAP #1 ea 04/03/19 04/02/21 History levothyroxine 75 mcg tablet 75 mcg PO DAILY #90 tab 12/18/20 04/22/21 Rx apixaban 5 mg tablet (Eliquis) 5 mg PO BID #180 tab 01/30/21 04/22/21 Rx cholecalciferol (vitamin D3) 50 50 mcg PO DAILY 03/06/21 04/22/21 History mcg (2,000 unit) capsule lisinopril 10 mg tablet 10 mg PO DAILY tab 03/06/21 04/22/21 History metoprolol succinate 25 mg 25 mg PO BID tab 03/06/21 04/22/21 History tablet,extended release 24 hr omega-3 fatty acids-fish oil 360 1 cap PO DAILY 03/06/21 04/22/21 History mg-1,200 mg capsule (Fish Oil) rosuvastatin 40 mg tablet 40 mg PO BEDTIME tab 03/06/21 04/02/21 History Allergies Allergy/AdvReac Type Severity Reaction Status Date / Time Penicillins Allergy Mild RASH AND Verified 04/22/21 10:55 SWELLING OF EXTREMITIES strawberry AdvReac Mild THROAT Verified 04/22/21 10:55 SCRATCHY watermelon AdvReac Mild BREATHING Verified 04/22/21 10:55 GETS WHEEZY Review of Systems Review of Systems ROS: Yes All systems reviewed with the patient and are negative except as otherwise documented Exam Vital Signs (past 8 hours): - 04/22/21 11:02 Temperature 98.1 F Pulse Rate 83 Respiratory Rate 18 Blood Pressure 156/83 H Pulse Oximetry 98 Narrative Exam Narrative: Gen-Adult man alert and oriented no acute distress Abdomen-Soft non tender Ext-WWP Assessment & Plan Assessment & Plan narrative: 75-year-old man significant cardiac and peripheral vascular disease with a change in bowel function.? Requires colonoscopy however secondary to comorbidities will need anaesthesia for sedation measures.? We discussed that there are a variety of disease both benign and malignant that could cause a change in bowel function and the first step is diagnostic colonoscopy. -colonoscopy with anesthesia -no need to hold anticoagulation Time Spent With Patient Critical Care time: I spent a total of [] minutes of critical care time on this patient's care today; this time is exclusive of procedural time.
--- NOTE | 2021-04-22 18:57 | PM.OP.ENDO ---
Operative Date/Time/Diagnoses Date of procedure: 04/22/21 Time of procedure: 18:57 Pre-op diagnosis: change in bowel habit Post-op diagnosis: same Procedure & Clinicians Study performed: colonoscopy Same procedure as scheduled: Yes Indications: change in bowel habit abdominal pain Surgeon: Dez Acosta Procedure Notes Procedure in detail: The history and physical was performed/updated and the patient is ASA class is 3. The procedure was discussed in detail with the patient. Potential risks complications including infection, bleeding, missed diagnosis, perforation, need for surgery, and were explained. Their questions were answered and informed consent was obtained. Patient was brought to the procedure room and placed standard monitoring equipment. The patient's vital signs were monitored continuously throughout the entire procedure. Prior to starting time-out was performed. The patient was placed in the left lateral recumbent position. Procedural sedation was administered by Anesthesia Examination began with a thorough inspection of the perianal area there was no evidence of fissures, fistulae, external hemorrhoids or cutaneous malignancy. The colonoscopy scope was then placed into the anal canal and was advanced to the cecum, which was identified by the ileocecal valve, the appendiceal orifice and the confluence of the taenia. The scope was then slowly withdrawn examining colon thoroughly in all directions, irrigating it of any residual stool. FINDINGS 1. No masses or polyps 2. No colitis 3. Diverticulosis The patient tolerated the procedure well. They will be discharged once criteria are met. The prep was of good/excellent quality. The withdrawl time was 6 minutes. Specimen(s): none sent Complications: none Impression: normal colonoscopy Post-procedure Plan for aftercare: no further colonoscopy necessary Disposition: same day surgery
== END | disposition home or self-care (01) ==
PROVIDERS: PCP Family Medicine; Referring Provider Surgery; Visit Provider Surgery
PROC: 0DJD8ZZ Inspection of Lower Intestinal Tract, Via Natural or Artificial Opening Endoscopic (ICD-10-PCS; CPT 45378; principal; 2021-04-22 11:45)
DX: R10.9 Unspecified abdominal pain (principal); R19.4 Change in bowel habit; I48.91 Unspecified atrial fibrillation; F41.9 Anxiety disorder, unspecified; I25.10 Atherosclerotic heart disease of native coronary artery without angina pectoris; K57.30 Diverticulosis of large intestine without perforation or abscess without bleeding
CPT/HCPCS: 45378; J2704

== ENCOUNTER → 2021-08-26 10:44 | Outpatient (CLI) | payer OTHER, SELFPAY ==
[2021-04-21 09:18] VITALS: BMI 34.7
[2021-08-26 13:19] LABS: Alanine Aminotransferase 14 IU/L (<50); Albumin 3.9 g/dL (3.5-5.0); Albumin Globulin Ratio 1.2 (1.0-2.8); Alkaline Phosphatase 101 U/L (38-126); Aspartate Aminotransferase 26 IU/L (17-59); BUN Creatinine Ratio 10.4 (6-22); Bilirubin Total 0.7 mg/dL (0.2-1.3); Blood Urea Nitrogen 12 mg/dL (9-20); Calcium 9.3 mg/dL (8.4-10.2); Carbon Dioxide 31 mmol/L (22-32); Chloride 103 mmol/L (98-107); Cholesterol 150 mg/dL (140-199); Estimated Glomerular Filt Rate > 60.0 mL/min (>60); Globulin 3.3 g/dL (1.7-4.1); Glucose 108 mg/dL (80-110); HDL Cholesterol 51 mg/dL (40-60); HEMOLYSIS < 15 (0-50); LDL Cholesterol Calculated 83 mg/dL (<100); Potassium 4.3 mmol/L (3.4-5.1); Sodium 139 mmol/L (137-145); Total Protein 7.2 g/dL (6.3-8.2); Triglycerides 79 mg/dL (35-150); Uric Acid 2.9 mg/dL (3.5-8.5)
[2021-08-26 13:23] LABS: Free T4, Direct Thyroxine 1.57 ng/dL (0.78-2.19)
[2021-08-26 13:37] LABS: Thyroid Stimulating Hormone 3.87 uIU/mL (0.47-4.68)
[2021-08-26 13:50] LABS: Hemoglobin A1C% w Est Avg Glu 5.9 % (4.0-6.0)
== END ==
PROVIDERS: PCP Family Medicine; Referring Provider Family Medicine; Visit Provider Family Medicine
DX: R73.03 Prediabetes (principal); I10 Essential (primary) hypertension; E78.2 Mixed hyperlipidemia; E03.9 Hypothyroidism, unspecified; I48.91 Unspecified atrial fibrillation; I77.9 Disorder of arteries and arterioles, unspecified; M25.50 Pain in unspecified joint
CPT/HCPCS: 36415; 80053; 80061; 83036; 84439; 84443; 84550

== ENCOUNTER → 2021-11-27 08:59 | Outpatient (CLI) | payer OTHER, SELFPAY ==
[2021-04-21 09:18] VITALS: BMI 34.7
[2021-11-27 09:42] LABS: Add Manual Diff / Slide Review NO; Basophils Absolute Auto 0 /uL (0-100); Basophils Percent Auto 0.6 % (0-2); Eosinophils Absolute Auto 200 /uL (0-450); Eosinophils Percent Auto 3.1 % (2-4); Hematocrit 37.9 % (41-53); Lymphocytes Absolute Auto 1300 /uL (1100-4500); Lymphocytes Percent Auto 21.9 % (25-40); Mean Corpuscular HGB Conc 34.3 % (30-36); Mean Corpuscular Hemoglobin 32.1 PG (26-34); Mean Corpuscular Volume 93.8 fL (80-100); Monocytes Absolute Auto 600 /uL (0-900); Monocytes Percent Auto 9.6 % (3-14); Neutrophils Absolute Auto 3800 /uL (1500-7000); Neutrophils Percent Auto 64.8 % (50-75); Platelet Count 146 X10^3/uL (150-400); Red Blood Cell Count 4.04 X10^6/uL (4.5-5.9); Red Cell Distribution Width 15.3 % (11.6-14.8); White Blood Cell Count 5.9 X10^3/uL (4.5-11.0)
[2021-11-27 10:49] LABS: Prostate Specific Antigen < 0.064 ng/mL (0.10-4.00)
== END ==
PROVIDERS: PCP Family Medicine; Referring Provider Family Medicine; Visit Provider Family Medicine
DX: K92.1 Melena (principal); Z85.46 Personal history of malignant neoplasm of prostate
CPT/HCPCS: 36415; 84153; 85025

== ENCOUNTER → 2022-08-20 14:29 | Outpatient (CLI) | payer OTHER, SELFPAY ==
[2021-04-21 09:18] VITALS: BMI 34.7
[2022-08-20 16:15] LABS: Free T4, Direct Thyroxine 1.38 ng/dL (0.78-2.19)
[2022-08-20 16:29] LABS: Thyroid Stimulating Hormone 3.65 uIU/mL (0.47-4.68)
== END ==
PROVIDERS: PCP Family Medicine; Referring Provider Family Medicine; Visit Provider Family Medicine
DX: E03.9 Hypothyroidism, unspecified (principal); I10 Essential (primary) hypertension; R73.03 Prediabetes; I71.40 Abdominal aortic aneurysm, without rupture, unspecified
CPT/HCPCS: 36415; 84439; 84443

== ENCOUNTER → 2024-08-19 09:38 | Outpatient (CLI) | payer OTHER, SELFPAY ==
[2021-04-21 09:18] VITALS: BMI 34.7
--- NOTE | 2024-08-19 09:39 | DI.CT.S_ITS ---
PROCEDURE: CT CHEST HIGH RESOLUTION INDICATIONS: H/o amiodarone exposure, dyspnea, eval for ILD TECHNIQUE: Noncontrast 1.0 and 5.0 mm thick contiguous axial sections from the pulmonary apex to the posterior costophrenic angles, with 7 mm thick coronal and sagittal MIP reformats. 1 mm thick dynamic expiratory images acquired through the upper, mid, and lower lungs. 1.0 mm thick axial sections acquired from the ana paula to the posterior costophrenic angles in the prone end-inspiration position. For radiation dose reduction, the following was used: automated exposure control, adjustment of mA and/or kV according to patient size. COMPARISON: Outside Facility, RG, CTA CHEST ABDOMEN PELVIS W / CONTRAST, 03/20/2021, 18:58. [facility], CT, CT LUMBAR SPINE WITHOUT CONTRAST, 04/26/2024, 8:10. FINDINGS: Image quality: Diagnostic. Lower Neck: No enlarged lymph nodes. Thyroid: No thyroid nodules which require sonographic follow up, per consensus guidelines. Axillae: No enlarged lymph nodes. Chest Wall: Left chest wall generator with cardiac leads. Bones: Unremarkable. Lungs and Pleura: No pneumothorax or pleural effusions. Moderate centrilobular and mild paraseptal emphysema. There is diffuse, peripheral reticulation with associated bronchiolectasis. Subpleural involvement is present. No honeycombing. No air trapping. There has been correction since 2020. Scattered pulmonary micro nodules, including the new 4 mm nodule in the right lower lobe (series 3, image 211). Heart: Heart size is enlarged. No pericardial effusion. Three-vessel coronary calcifications. Thoracic Vessels: The aorta and pulmonary arteries demonstrate normal size. Mediastinum and Sherry: No enlarged lymph nodes. Esophagus: No wall thickening. No hiatal hernia. Upper Abdomen: A few liver lesions with indeterminate attenuation. IMPRESSION: Mild interval growth hood of interstitial lung disease, possible UIP pattern. Differential includes drug reaction to amiodarone . Pulmonary micronodules. Consider 12 month follow-up, per Fleischner Society guidelines. A few liver lesions with indeterminate attenuation. Metastatic disease is a consideration, so evaluation with MRI is recommended (hepatic mass protocol with Eovist). Consider annual low-dose lung cancer screening if eligible (age 50-85 who have a 20 pack-year smoking history and currently smoke or have quit within the last 15 years). Dictated by: Luis Rios M.D. on 08/21/2024 at 10:45 Approved by: Luis Rios M.D. on 08/21/2024 at 10:54
== END ==
PROVIDERS: PCP Family Medicine; Referring Provider Internal Medicine Critical Care Medicine; Visit Provider Internal Medicine Critical Care Medicine
DX: R91.8 Other nonspecific abnormal finding of lung field (principal); J84.9 Interstitial pulmonary disease, unspecified; K76.9 Liver disease, unspecified
CPT/HCPCS: 71250